=== PATIENT | female | born 1965 | race Caucasian/White ===

== ENCOUNTER 2017-02-08 12:14 | Emergency (ER) | payer OTHER, SELFPAY | END 2017-02-08 13:06 | disposition home or self-care (01) | PROVIDERS: Emergency Provider Emergency Medicine; Family Provider Internal Medicine; Visit Provider Emergency Medicine | DX: S61.211A Laceration without foreign body of left index finger without damage to nail, initial encounter (principal); W26.0XXA Contact with knife, initial encounter; Y93.9 Activity, unspecified; Y92.9 Unspecified place or not applicable; F17.210 Nicotine dependence, cigarettes, uncomplicated; Z23 Encounter for immunization | CPT/HCPCS: 12001; 90471; 90715; 96372; 99282 ==